=== PATIENT | male | born 1980 | race Caucasian/White ===

== ENCOUNTER 2020-04-28 14:08 | Inpatient (IN) | payer OTHER ==
[~2020-04-28] VITALS: Ht 165.1 cm; Wt 68.0 kg
[~2020-04-28 14:08] MED LIST: CLONAZEPAM2 MG PO; OMEGA 3 FISH O1 EAC1 PO; PROBIOTIC1 EAC2 PO; VITAMIN K PO; [UNRECOGNIZED DRUG - OTHER] ORAL; [UNRECOGNIZED DRUG - OTHER] PO; [UNRECOGNIZED DRUG - OTHER] PO; [UNRECOGNIZED DRUG - OTHER] PO; [UNRECOGNIZED DRUG - REMARK] PO
--- NOTE | 2020-04-28 14:51 | Emergency Room Report ---
History of Present Illness General Chief Complaint: General Complaint Source: Patient, PMD - Dr. Wood Present Illness HPI Patient is a 39-year-old male who presents to the ER complaining of abdominal pain and bloating. Patient had a Jamison pouch placed by Dr. Wood in the [facility]. Patient came in from [place] to see his surgeon for further treatment and evaluation. He denies any fever or chills. Denies any chest pain or shortness of breath. He states that he wakes up in the morning with severe abdominal bloating. Dr. Wood who is in the emergency department is requesting basic labs, COVID-19 test and hydration. He does not want any imaging done at this time. Patient is declining any pain medication at this time. Allergies: Coded Allergies: No Known Allergies (Unverified , 01/28/13) COVID-19 Screening Contact w/high risk pt: No Experienced COVID-19 symptoms?: No COVID-19 Testing performed MICA MINER: No Patient History Reviewed Nursing Documentation: PMH: Agreed; PSxH: Agreed Nursing Documentation-PMH Past Medical History: No History, Except For Hx Cardiac Problems: No - IBS Hx Gastrointestinal Problems: Yes - pelvic floor dysfunction, colonic inertia Review of Systems All Other Systems: negative except mentioned in HPI Physical Exam Vital Signs Date Time Temp Pulse Resp B/P (MAP) Pulse Ox O2 Delivery O2 Flow Rate FiO2 04/28/20 14:14 98.1 93 18 138/98 (111) 95 Room Air Sp02 EP Interpretation: reviewed, normal General Appearance: no apparent distress, alert, GCS 15, non-toxic Head: normocephalic, atraumatic Eyes: bilateral eye normal inspection, bilateral eye PERRL ENT: hearing grossly normal, normal pharynx, no angioedema, normal voice Neck: full range of motion, supple/symm/no masses Respiratory: chest non-tender, lungs clear, normal breath sounds, speaking full sentences Cardiovascular #1: regular rate, rhythm, no edema Gastrointestinal: soft, no guarding, no rebound, other - Palpable pouch in the lower abdomen Rectal: deferred Musculoskeletal: normal range of motion Neurologic: sequins stringer III-XII nml as tested, oriented x3 Psychiatric: no suicidal/homicidal ideation Skin: no rash Lymphatic: no adenopathy Medical Decision Making Diagnostic Impression: Primary Impression: Abdominal distension Additional Impression: Abdominal pain ER Course Patient's labs demonstrate no significant acute abnormalities. Patient's complaining of some abdominal discomfort. I ordered for Mylanta and Pepcid. Patient given IV fluids. Patient will be admitted for further treatment and evaluation. Laboratory Tests Test 04/28/20 14:54 White Blood Count 5.9 K/UL (4.8-10.8) Red Blood Count 5.84 M/UL (4.70-6.10) Hemoglobin 17.2 G/DL (14.2-18.0) Hematocrit 50.0 % (42.0-52.0) Mean Corpuscular Volume 86 FL (80-99) Mean Corpuscular Hemoglobin 29.5 PG (27.0-31.0) Mean Corpuscular Hemoglobin Concent 34.4 G/DL (32.0-36.0) Red Cell Distribution Width 12.5 % (11.6-14.8) Platelet Count 257 K/UL (150-450) Mean Platelet Volume 7.9 FL (6.5-10.1) Neutrophils (%) (Auto) 62.5 % (45.0-75.0) Lymphocytes (%) (Auto) 26.4 % (20.0-45.0) Monocytes (%) (Auto) 6.2 % (1.0-10.0) Eosinophils (%) (Auto) 3.3 % (0.0-3.0) H Basophils (%) (Auto) 1.6 % (0.0-2.0) Sodium Level 140 MMOL/L (136-145) Potassium Level 3.9 MMOL/L (3.5-5.1) Chloride Level 103 MMOL/L (98-107) Carbon Dioxide Level 27 MMOL/L (21-32) Anion Gap 10 mmol/L (5-15) Blood Urea Nitrogen 8 mg/dL (7-18) Creatinine 1.0 MG/DL (0.55-1.30) Estimated Glomerular Filtration Rate > 60 mL/min (>60) Glucose Level 87 MG/DL (74-106) Calcium Level 8.8 MG/DL (8.5-10.1) Total Bilirubin 1.2 MG/DL (0.2-1.0) H Direct Bilirubin 0.2 MG/DL (0.0-0.3) Aspartate Amino Transferase (AST) 20 U/L (15-37) Alanine Aminotransferase (ALT) 11 U/L (12-78) L Alkaline Phosphatase 70 U/L (46-116) Total Protein 7.3 G/DL (6.4-8.2) Albumin 3.9 G/DL (3.4-5.0) Globulin 3.4 g/dL Albumin/Globulin Ratio 1.1 (1.0-2.7) Lipase 143 U/L (73-393) Microbiology Date/Time Source Procedure Growth Status 04/28/20 14:54 Nasopharynx SARS-CoV-2 Antigen (Rapid)([facility]) - Final Complete Last Vital Signs Date Time Temp Pulse Resp B/P (MAP) Pulse Ox O2 Delivery O2 Flow Rate FiO2 04/28/20 14:14 98.1 93 18 138/98 (111) 95 Room Air Disposition: ADMITTED INPATIENT - MS Condition: Stable Physician Consult: Dr. Nina MD Referrals: NOT CHOSEN IPA/,REFERRING (PCP) Additional Instructions: Please note that this report is being documented using [employer] technology. This can lead to erroneous entry secondary to incorrect interpretation by the dictating instrument. Katy Yan M.D. Apr 28, 2020 14:51
[2020-04-28 15:07] LABS: BASOPHILS % (AUTO) 1.6 % (0.0-2.0); EOSINOPHILS % (AUTO) 3.3 % (0.0-3.0); HEMOGLOBIN 17.2 G/DL (14.2-18.0); LYMPHOCYTES % (AUTO) 26.4 % (20.0-45.0); MEAN CORPUSCULAR VOLUME 86 FL (80-99); MONOCYTES % (AUTO) 6.2 % (1.0-10.0); NEUTROPHILS % (AUTO) 62.5 % (45.0-75.0); PLATELET COUNT 257 K/UL (150-450); RED BLOOD COUNT 5.84 M/UL (4.70-6.10); RED CELL DISTRIBUTION WIDTH 12.5 % (11.6-14.8); WHITE BLOOD COUNT 5.9 K/UL (4.8-10.8)
[2020-04-28 15:18] LABS: ANION GAP 10 mmol/L (5-15); BLOOD UREA NITROGEN 8 mg/dL (7-18); CALCIUM 8.8 MG/DL (8.5-10.1); CARBON DIOXIDE 27 MMOL/L (21-32); CHLORIDE 103 MMOL/L (98-107); POTASSIUM 3.9 MMOL/L (3.5-5.1); SODIUM 140 MMOL/L (136-145)
--- NOTE | 2020-04-28 15:28 | NUR ---
Patient presented to the ER with c/o abdominal pain and bloating. Patient had a Jamison pouch placed by Dr. Wood in the past. Patient came in from [place] to see his surgeon for further treatment and evaluation. He states that it has been awhile with the bloating feeling but 24 hrs with severe abdominal bloating.he wakes up in the morning with severe abdominal bloating. Dr. Wood who is in the emergency department is requesting basic labs, COVID-19 test and hydration. He does not want any imaging done at this time. Patient denies pain at present.
[2020-04-28 15:30] LABS: ALANINE AMINOTRANSFERASE 11 U/L (12-78); ALBUMIN 3.9 G/DL (3.4-5.0); ALBUMIN/GLOBULIN RATIO 1.1 (1.0-2.7); ALKALINE PHOSPHATASE 70 U/L (46-116); ASPARTATE AMINO TRANSFERASE 20 U/L (15-37); BILIRUBIN,TOTAL 1.2 MG/DL (0.2-1.0)
[2020-04-28 15:36] LABS: BILIRUBIN,DIRECT 0.2 MG/DL (0.0-0.3)
--- NOTE | 2020-04-28 16:45 | NUR ---
trace rn called report to 4th floor rn. pt belongings list filled out with rn and pt. pt taken upstairs to room.
[2020-04-28 16:50] VITALS: BP 134/76
--- NOTE | 2020-04-28 16:50 | NUR ---
NURSE NOTES: Received pt from ER and report from DELMY Parkinson. Pt was transferred to floor via W/C, alert and oriented x4, ambulatory. Checked all belongings with pt. Vitals stable. Pt on RA with no respiratory distress. Pt c/o little bloating pain 2/10 but tolerating well. Skin intact. Noted with RLQ stoma, inserted 28 Wilson connected to continuous gravity drainage and covered with dry dressing. noted little amount light brown liquid output. IV site intact and patent. Provided needs and supplies. Bed in low and locked. Oriented pt to room. Educated pt to use call light for assistance. Pt verbalized understanding. Call light and needs within reach. Will continue to monitor.
[2020-04-28] MEDS: D5 1/2NS w/KCl 20mEq 1,000 ML IV SCH (18:00)
--- NOTE | 2020-04-28 19:31 | NUR ---
NURSE HAND-OFF: Important Events on Shift:[Admission, inserted 28 larry to continuous gravity drainage, true output 80.] Patient Status: [] Diet: [clear liquid] Pending Orders: [] Pending Results/Labs:[] Pending MD notification:[] Latest Vital Signs: Temperature 98.0 , Pulse 93 , B/P 138 /98 , Respiratory Rate 18 , O2 SAT 95 , Room Air, O2 Flow Rate . Vital Sign Comment: [stable] Latest Martins Fall Score: 35 Fall Risk: Medium Risk Safety Measures: Call light Within Reach, Bed Alarm Zone 1, Side Rails Side Rails x2, Bed position Low and Locked. Fall Precautions: Report given to [DELMY Fortune].
[2020-04-28 20:00] VITALS: BP 131/92
[2020-04-28] MEDS ORDERED: Zolpidem 5mg tab ORAL PRN (20:00)
--- NOTE | 2020-04-28 20:40 | NUR ---
NURSE NOTES: Patient is awake, alert and verbally responsive. Kept clean and comfortable. Provided safe environment. Bed in low and locked position. All belongings at bedside. Iv site noted, iv fluid is infusing as ordered. No complaint of pain or discomfort at the moment. Flushed Ileo as ordered. Educated patient regarding medication regiment and vital signs timing. Respiration is even and unlabored. Ambulatory. Patient is informed that he will be NPO at midnight. Will continue plan of care. Call light is at bedside.
[2020-04-28 23:04] LABS: APPEARANCE,URINE CLEAR; BILIRUBIN, URINE NEGATIVE (NEGATIVE); GLUCOSE, URINE (UA) NEGATIVE (NEGATIVE); KETONES,URINE 1+ (NEGATIVE); LEUKOCYTE ESTERASE ,URINE 1+ (NEGATIVE); NITRITE,URINE NEGATIVE (NEGATIVE); PH,URINE 5 (4.5-8.0); PROTEIN,URINE NEGATIVE (NEGATIVE); UROBILINOGEN,URINE NORMAL MG/DL (0.0-1.0)
[2020-04-28] MEDS: LORazepam 1mg tab ORAL PRN (23:12)
[2020-04-28 23:27] LABS: COLOR,URINE YELLOW
[2020-04-29] VITALS: BP 118/68
[2020-04-29 04:00] VITALS: BP 120/67
[2020-04-29] MEDS: D5 1/2NS w/KCl 20mEq 1,000 ML IV SCH ×2 (06:46→17:15)
[2020-04-29 07:07] LABS: ANION GAP 6 mmol/L (5-15); BLOOD UREA NITROGEN 8 mg/dL (7-18); CALCIUM 8.3 MG/DL (8.5-10.1); CARBON DIOXIDE 27 MMOL/L (21-32); CHLORIDE 104 MMOL/L (98-107); POTASSIUM 3.8 MMOL/L (3.5-5.1); SODIUM 137 MMOL/L (136-145)
[2020-04-29 07:15] LABS: BASOPHILS % (AUTO) 1.2 % (0.0-2.0); EOSINOPHILS % (AUTO) 2.8 % (0.0-3.0); HEMATOCRIT 50.8 % (42.0-52.0); LYMPHOCYTES % (AUTO) 20.2 % (20.0-45.0); MEAN CORPUSCULAR VOLUME 85 FL (80-99); MONOCYTES % (AUTO) 6.4 % (1.0-10.0); NEUTROPHILS % (AUTO) 69.3 % (45.0-75.0); PLATELET COUNT 254 K/UL (150-450); RED BLOOD COUNT 5.95 M/UL (4.70-6.10); RED CELL DISTRIBUTION WIDTH 11.4 % (11.6-14.8)
--- NOTE | 2020-04-29 07:17 | NUR ---
NURSE HAND-OFF: Important Events on Shift:Less abdominal pain Patient Status: Diet: Pending Orders: Pending Results/Labs: Pending MD notification: Latest Vital Signs: Temperature 98.0 , Pulse 73 , B/P 120 /67 , Respiratory Rate 18 , O2 SAT 96 , Room Air, O2 Flow Rate . Vital Sign Comment: Latest Martins Fall Score: 35 Fall Risk: Medium Risk Safety Measures: Call light Within Reach, Bed Alarm Zone 2, Side Rails Side Rails x2, Bed position Low and Locked. Fall Precautions: Report given to .
[2020-04-29 07:24] LABS: ALANINE AMINOTRANSFERASE 19 U/L (12-78); ALBUMIN 3.5 G/DL (3.4-5.0); ALBUMIN/GLOBULIN RATIO 1.3 (1.0-2.7); ALKALINE PHOSPHATASE 62 U/L (46-116); ASPARTATE AMINO TRANSFERASE 18 U/L (15-37); BILIRUBIN,TOTAL 1.2 MG/DL (0.2-1.0); FERRITIN 27 NG/ML (8-388)
[2020-04-29 07:25] LABS: BILIRUBIN,DIRECT 0.3 MG/DL (0.0-0.3)
[2020-04-29 07:31] LABS: % IRON SATURATION 79 % (15-50); IRON 275 ug/dL (50-175); TOTAL IRON BINDING CAPACITY 348 ug/dL (250-450)
--- NOTE | 2020-04-29 07:45 | NUR ---
NURSE NOTES: Received report from DELMY Fortune. Patient is awake, alert and verbally responsive. Respiration is even and unlabored. Ambulatory. No acute distress noted. No c/o pain at this time. Iv site noted, iv fluid is infusing as ordered. Ileo cath patent draining to gravity. Bed in low and locked position. Pt on NPO. Call light within reach. Will continue to monitor.
--- NOTE | 2020-04-29 07:45 | Pre-Procedure Note/Attestation ---
Pre-Procedure Note/Attestation Complete Prior to Procedure Planned Procedure: not applicable Procedure Narrative: Jamison Continent Ileostomy pouch endoscopy Indications for Procedure Pre-Operative Diagnosis: Abdominal pain and malfunctioning Jamison continent ileostomy Attestation I attest that I discussed the nature of the procedure; its benefits; risks and complications; and alternatives (and the risks and benefits of such alternatives), prior to the procedure, with the patient (or the patient's legal software support representative). I attest that, if there was a reasonable possibility of needing a blood transfusion, the patient (or the patient's legal software support representative) was given the [facility] standardized written summary, pursuant to the [place] Blood Safety Act ([place] Health and Safety Code # 1645, as amended). I attest that I re-evaluated the patient just prior to the surgery and that there has been no change in the patient's H&P, except as documented below: none Pedro Wood MD Apr 29, 2020 07:45
--- NOTE | 2020-04-29 07:49 | General Progress Note ---
Progress Note Progress Note H&P dictated. 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 He is stable at this time. Pedro Wood MD Apr 29, 2020 07:49
--- NOTE | 2020-04-29 07:50 | NUR ---
NURSE NOTES: Pt off unit for Endoscopy.
[2020-04-29 08:00] VITALS: BP 117/79
--- NOTE | 2020-04-29 08:24 | Brief Operative Note ---
Immediate Post Operative Note Operative Note Pre-op Diagnosis: Abdominal pain and malfunctioning Jamison continent ileostomy Procedure: Jamison continent ileostomy pouch endoscopy Post-op Diagnosis: same with normal pouch and valve, elongated access segment Post-op Diagnosis: same as pre-op Findings: consistent w/pre-op dx studies Surgeon: preston Anesthesia: other - none Specimen: none Complications: none Condition: stable Fluids: none Estimated Blood Loss: none Drains: other - 28 Wilson to Jamison pouch Implant(s) used?: No Pedro Wood MD Apr 29, 2020 08:24
--- NOTE | 2020-04-29 08:34 | NUR ---
NURSE NOTES: Pt came back from GI lab with stable condition.
--- NOTE | 2020-04-29 09:00 | NUR ---
NURSE NOTES: Stool collected from drainage bag for C diff and stool culture per Dr. Wood and sent to lab
--- NOTE | 2020-04-29 09:29 | Procedure Note ---
DATE OF PROCEDURE: 04/29/2020 Endoscopy Procedure ENDOSCOPIST: Pedro Wood M.D. ANESTHESIA: None. SEDATION: None. PRE-ENDOSCOPY DIAGNOSES: 1. Malfunctioning Jamison continent ileostomy with chronic persistent abdominal pain and possible pouchitis. 2. History of colonic inertia and pelvic floor dysfunction. 3. Status post total abdominal colectomy and creation of Jamison continent ileostomy. POST-ENDOSCOPY DIAGNOSES: 1. Malfunctioning Jamison continent ileostomy with chronic persistent abdominal pain and possible pouchitis. 2. History of colonic inertia and pelvic floor dysfunction. 3. Status post total abdominal colectomy and creation of Jamison continent ileostomy. ENDOSCOPY PERFORMED: Jamison continent ileostomy pouch endoscopy. FINDINGS: Elongation of the access segment with the distance from the stoma opening to the tip of the nipple valve measured at 12 cm. The stoma is very small and the patient requires an indwelling stent continuously. The pouch appeared completely normal without any inflammation or ulcerations and the nipple valve was circumferentially well-formed. DESCRIPTION OF PROCEDURE: The patient was positioned supine in the GI lab without any need for anesthesia or sedation. The indwelling pouch catheter was removed after irrigating with saline. Using a GIF-P140 endoscope, the stoma was entered. The access segment is elongated with the distance to the tip of the valve approximately 12 cm. The tract is straight and the patient reports no difficulty with intubation and no incontinence of stool or gas through the stoma. The pouch is distensible. There are no ulcerations or inflammation. The afferent bowel is patent, but due to patient's discomfort the scope could not enter very far 5 or 6 cm. Retroflexed views revealed a wide-open collar orifice and a circumferentially well-formed nipple valve. Withdrawal views confirmed the above findings. After removing the endoscope, I was able to insert a 28-Kazakh Wilson catheter into the pouch to evacuate the retained gas and liquid. It was secured to the skin with tape with a dressing over the stoma and connected to a continuous gravity drainage bag. The patient tolerated the endoscopy well and will continue with his diagnostic workup. Pedro Wood M.D. DR: MARY CARMEN JOB#: [id number] CC: ALLISON
--- NOTE | 2020-04-29 09:29 | History and Physical Report ---
DATE OF ADMISSION: 04/28/2020 Admitted from the emergency room in the early evening of April 28, 2020. HISTORY OF PRESENT ILLNESS: The patient is a 39-year-old male in overall good health, who has progressive and persistent abdominal pain and a 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 The patient has a past history of colonic inertia and pelvic floor dysfunction. In 2009, he underwent sigmoid colectomy and in 2012, he underwent total abdominal colectomy with creation of a Jamison continent ileostomy pouch. He underwent revision of his stoma in depth in May 2013 because of some difficulty with intubation. In recent years, he has had difficulty with chronic pouchitis type symptoms with cramping abdominal pain and loose output. He states he has no difficulty with intubation and no incontinence of stool or gas through the stoma. His stoma is very small and he must wear a stent continuously or the stoma closes down and would not allow him to insert his 30-Uzbek silicone intubation catheter to evacuate stool from his pouch. His abdominal pain symptoms have not responded to a variety of medications for pouchitis including Cipro, Flagyl, Augmentin, Diflucan, and probiotics. The patient was admitted because of his constant abdominal pain. PAST MEDICAL HISTORY/MEDICATIONS: Testosterone replacement therapy and the above various medications for abdominal pain, cramping, pouchitis. ALLERGIES: None. OPERATIONS: Only the above. PHYSICAL EXAMINATION: GENERAL: The patient is 5 feet 9 inches, 150 pounds. He is well developed and well nourished with stable vital signs. HEENT: Within normal limits. LUNGS: Clear. HEART: Regular rhythm. BREASTS: Without masses. ABDOMEN: Soft and flat. There is a long midline scar. There is a small stoma low in the right lower quadrant of the Jamison pouch. There is no evidence of abdominal wall incisional or peristomal hernia. GENITALIA: Within normal limits. RECTAL: There is a small rectal pouch. EXTREMITIES: Without edema. NEUROLOGIC: Physiologic. IMPRESSION: 1. Continuing and progressive abdominal pain of uncertain etiology, rule out a stricture or partial obstruction. 2. Malfunctioning Jamison continent ileostomy with recurring, cramping and diarrhea output, refractory to medications. 3. History of colonic inertia and pelvic floor dysfunction. 4. STATUS POST MULTIPLE ABDOMINAL OPERATIONS: 4.1. Sigmoid colectomy 2009 without any clinical benefit. 4.2. Total abdominal colectomy with creation of a Jamison continent ileostomy January 29, 2013 (a postoperative pelvic abscess required CT-guided drainage). 4.3. Revision of Jamison continent ileostomy stoma in depth on May 07, 2013 PLAN: The patient will be admitted and will be given only clear liquids as tolerated, but will be primarily NPO for a thorough evaluation. He will need to undergo Jamison continent ileostomy pouch endoscopy, which will not require any anesthesia. He will require a pouchogram with retrograde small bowel series, CT scan of abdomen and pelvis with oral and IV contrast and upper GI with small bowel series, all will be done in the appropriate sequence. An indwelling 28-Uzbek Wilson catheter was placed into his Jamison continent ileostomy pouch and connected to continuous gravity drainage. Stool samples will be sent for C. difficile toxin and culture and sensitivity. Pedro Wood M.D. DR: LIVIA JOB#: [id number] CC: ALLISON
[2020-04-29 12:00] VITALS: BP 108/72
--- NOTE | 2020-04-29 13:10 | NUR ---
NURSE NOTES: Pt off unit for Pouchogram
--- NOTE | 2020-04-29 13:48 | NUR ---
NURSE NOTES: Pt came back from Radiology.
--- NOTE | 2020-04-29 14:09 | Diagnostic Imaging Report ---
Indication: Abdominal pain. History of total colectomy and creation of continent ostomy Technique: Kock Pouch Pouchogram w/SBS. Fluoroscopic and radiographic examination performed. Primary Teacher radiograph obtained. Subsequently water-soluble contrast was instilled via the continent ostomy catheter. Radiographic and fluoroscopic images were obtained. Total fluoroscopy time 42.1 seconds. Total fluoroscopy dose 9.88 mGy. Total number of radiographic images/fluoroscopic runs obtained: 12. Comparison: None Findings: Primary Teacher radiograph demonstrates surgical material in the pelvis consistent with known history of continent ostomy creation. Water-soluble contrast was instilled and subsequent fluoroscopic images were obtained. There is normal filling of the pouch. The pouch does not appear very capacious, refluxing quickly into the upstream small bowel loops. The visualized loops of small bowel are normal in caliber. There is no evidence to suggest small bowel obstruction. No discrete mucosal irregularities appreciated in the pouch however more sensitive evaluation could be made with endoscopy. No acute osseous abnormality seen. IMPRESSION: Postsurgical changes related to continent ostomy. No evidence of small bowel obstruction. Small bowel loops grossly unremarkable appearance to the extent visualized.
[2020-04-29 16:00] VITALS: BP 123/75
--- NOTE | 2020-04-29 19:37 | NUR ---
NURSE HAND-OFF: Important Events on Shift:[Endoscopy, pouchogram done, resume clear liquid diet] Patient Status: [] Diet: [clear liquid] Pending Orders: [] Pending Results/Labs:[] Pending MD notification:[] Latest Vital Signs: Temperature 97.8 , Pulse 88 , B/P 123 /75 , Respiratory Rate 18 , O2 SAT 95 , Room Air, O2 Flow Rate . Vital Sign Comment: [stable] Latest Martins Fall Score: 35 Fall Risk: Medium Risk Safety Measures: Call light Within Reach, Bed Alarm Zone 2, Side Rails Side Rails x2, Bed position Low and Locked. Fall Precautions: Report given to [Fabian Beard].
--- NOTE | 2020-04-29 19:45 | NUR ---
NURSE NOTES: Received report from Sima BROCK. Patient is awake, alert and oriented x4. On room air, breathing is even and unlabored. No complains of pain or distress noted. Ileo RLQ intact and draining well. Will flush 20cc q3h and prn. IV left FA intact and patent with no bleeding noted. IVF running as ordered. Bed low and locked. Call light within reach.
[2020-04-29 20:00] VITALS: BP 117/67
--- NOTE | 2020-04-29 22:00 | NUR ---
NURSE NOTES: Patient requests to be off IVF when sleeping. He stated "I have ileo catheter already, another line on my body makes me hard to fall asleep." Explained the risks and benefits of IVF, and patient stated he understands. Patient is on clear liquid diet and drinking water. Encouraged him to drink fluid since he will be off IVF while sleeping. Will disconnect IVF from 2200 to 0600 per patient request.
[2020-04-29] MEDS: LORazepam 1mg tab ORAL PRN (22:07)
[2020-04-30] VITALS: BP 119/76
[2020-04-30] MEDS: D5 1/2NS w/KCl 20mEq 1,000 ML IV SCH ×3 (03:27→22:29)
--- NOTE | 2020-04-30 07:04 | Consultation ---
History of Present Illness General Chief Complaint: General Complaint Present Illness Allergies: Coded Allergies: No Known Allergies (Unverified , 01/28/13) Medication History Scheduled Clonazepam (Clonazepam), 2 MG PO QHS, (Reported) Lactobacillus Acidophilus (Probiotic), 1 EACH PO BID, (Reported) Multivitamins With Minerals Liq Ud* (Multivitamins With Minerals Liq Ud*), 10 ML ORAL DAILY, (Reported) Patient History Healthcare decision maker N Resuscitation status Advanced Directive on File Physical Exam Last 24 Hour Vital Signs Date Time Temp Pulse Resp B/P (MAP) Pulse Ox O2 Delivery O2 Flow Rate FiO2 04/30/20 00:00 97.2 75 18 119/76 (90) 97 04/29/20 22:52 75 18 117/67 96 04/29/20 22:07 75 18 117/67 96 04/29/20 21:00 Room Air 04/29/20 20:00 97.6 75 18 117/67 (84) 96 04/29/20 16:00 97.8 88 18 123/75 (91) 95 04/29/20 12:00 98.2 74 18 108/72 (84) 96 04/29/20 09:00 Room Air 04/29/20 08:00 98.0 87 18 117/79 (92) 96 Intake and Output 04/29/20 04/30/20 19:00 07:00 Intake Total 480 ml 700 ml Output Total 1210 ml 925 ml Balance -730 ml -225 ml Intake Oral 480 ml 400 ml IV Total 300 ml Output Urine Total 200 ml 475 ml Other 1010 ml 450 ml # Voids 2 Microbiology Date/Time Source Procedure Growth Status 04/29/20 09:05 Stool Clostridium difficile Toxin Assay - Final Complete 04/29/20 09:05 Stool Stool Culture - Preliminary NORMAL FECAL SOM. Resulted Height (Feet): 5 Height (Inches): 5.00 Weight (Pounds): 150 Medications Current Medications Medications (Trade) Dose Ordered Sig/Charissa Route PRN Reason Start Time Stop Time Status Last Admin Dose Admin Dextrose/ Electrolytes 1,000 ml @ 100 mls/hr Q10H IV 04/28/20 18:00 05/28/20 17:59 04/29/20 17:15 Lorazepam (Ativan) 1 mg QHS PRN ORAL INSOMNIA 04/28/20 21:45 05/05/20 21:44 04/29/20 22:07 Ondansetron HCl (Zofran) 4 mg Q4H PRN IVP Nausea & Vomiting 04/28/20 17:00 05/28/20 16:59 Assessment/Plan Assessment/Plan: Hematology Consultation REQ : Pedro Wood RFC: Erythrocytosis DOS: 04/30/2020 Id The patient is a 39-year-old male in overall good health, who has progressive and persistent abdominal pain and a 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 The patient has a past history of colonic inertia and pelvic floor dysfunction. In 2009, he underwent sigmoid colectomy and in 2012, he underwent total abdominal colectomy with creation of a Jamison continent ileostomy pouch. He underwent revision of his stoma in depth in May 2013 because of some difficulty with intubation. In recent years, he has had difficulty with chronic pouchitis type symptoms with cramping abdominal pain and loose output. He states he has no difficulty with intubation and no incontinence of stool or gas through the stoma. His stoma is very small and he must wear a stent continuously or the stoma closes down and would not allow him to insert his 30-[place] silicone intubation catheter to evacuate stool from his pouch. His abdominal pain symptoms have now responded to a variety of medications for pouchitis including Cipro, Flagyl, Augmentin, Diflucan, probiotics. The patient was admitted because of his constant abdominal pain. Pending Ct scan I dw him re his hgb/hct, has been persistently elevated over last two years, has been on testosterone treatment, hgb remains elevated despite blood donation, and he has been on persistent testosterone, ferritin recently was 23, as outpatient, he has been on hormone replacement, per patient has the hormones per instructor of nursing of a 86 year old male. PAST MEDICAL HISTORY/MEDICATIONS: Testosterone replacement therapy and the above various medications for abdominal pain, cramping, pouchitis. ALLERGIES: None. OPERATIONS: Only the above. PHYSICAL EXAMINATION: GENERAL: The patient is 5 feet 9 inches, vitals stable HEENT: Within normal limits. LUNGS: Clear. HEART: Regular rhythm. BREASTS: Without masses. ABDOMEN: Soft and flat. There is a long midline scar. There is a small stoma low in the right lower quadrant of the Jamison pouch++++ GENITALIA: Within normal limits. RECTAL: There is a small rectal pouch. EXTREMITIES: Without edema. NEUROLOGIC: Physiologic. Labs: reviewed Imaging: noted IMPRESSION/RECS: # Erythrocytosis with hct that is consistently above 50, currently is 52, is due to persistent testosterone replacement --> labs have been reviewed, ferritin 27, tibc 348, is consistent with blood donation --> would recommend to see instructor of nursing to adjust dose as needed of testosterone --> at this time continue to be off iron, does not need iron replacement --> recommend to continue to donate blood in [place] as needed to get ferritin <50 --> dw him extensively, he will do well with continued donations # Continuing and progressive abdominal pain of uncertain etiology, rule out a stricture or partial obstruction. --> imaging with Ct, bowel series --> per surg # Malfunctioning Jamison continent ileostomy with recurring, cramping and diarrhea output, refractory to medications. # History of colonic inertia and pelvic floor dysfunction. # STATUS POST MULTIPLE ABDOMINAL OPERATIONS: -->. Sigmoid colectomy 2009 without any clinical benefit. -->. Total abdominal colectomy with creation of a Jamison continent ileostomy January 29, 2013 (a postoperative pelvic abscess required CT-guided drainage). -->. Revision of Jamison continent ileostomy stoma in depth on May 07, 2013. # Dvt ppx scds Appreciate consultation and Selwyn Nair Rn, MD Apr 30, 2020 07:04
--- NOTE | 2020-04-30 07:13 | NUR ---
NURSE HAND-OFF: Important Events on Shift: No new event Patient Status: Stable Diet: Clear liquid Pending Orders: [] Pending Results/Labs:[] Pending MD notification:[] Latest Vital Signs: Temperature 97.2 , Pulse 75 , B/P 119 /76 , Respiratory Rate 18 , O2 SAT 97 , Room Air, O2 Flow Rate . Vital Sign Comment: VS stable Latest Martins Fall Score: 20 Fall Risk: Low Risk Safety Measures: Call light Within Reach, Bed Alarm Zone 2, Side Rails Side Rails x2, Bed position Low and Locked. Fall Precautions: Report given to Livia BROCK.
[2020-04-30 08:00] VITALS: BP 112/76
--- NOTE | 2020-04-30 08:00 | NUR ---
NURSE NOTES: Patient awake and alert and oriented.IV fluids infusing as ordered.patient has illeostomy catheter connected to drainage bag with green/ brown liquid drainage noted.Patient is NPO fo schedule CT of abdomen this AM.Call light within reach.
--- NOTE | 2020-04-30 08:08 | General Progress Note ---
Progress Note Progress Note Continued intermittent cramping pains. Pouchogram with retrograde Small bowel series negative except for small capacity Jamison continent ileostomy pouch Abdomen soft. Jamison pouch catheter in place to continuous drainage BCIR ileo 1460 Appreciate hematology consultation Imp: Abdominal pain; continent ileostomy Plan; CT scan abd+pelvis with oral and IV contrast Maintain indwelling BCIR pouch catheter to continuous drainage Pedro Wood MD Apr 30, 2020 08:08
[2020-04-30] MEDS ORDERED: Omnipaque-300 100ml vial INJ PRN (08:15)
--- NOTE | 2020-04-30 11:08 | NUR ---
INSURANCE CLINICALS FAXED TO [facility] FX [phone]
[2020-04-30 12:00] VITALS: BP 122/87
--- NOTE | 2020-04-30 12:31 | Diagnostic Imaging Report ---
EXAM: CT CT Abdomen Pelvis w/Contrast INDICATION: Reason For Exam: ABD PAIN. COMPARISON: 05/07/2013 TECHNIQUE: Axial images were obtained through the abdomen pelvis with intravenous contrast. Sagittal and coronal reformats are generated. All CT scans at this facility are performed using dose modulation techniques as appropriate to a performed exam including the following: automated exposure control with adjustment of the mA and/or kV according to patient size. RADIATION DOSE: CTDIvol: 3.8 mGy DLP: 207.3 mGy-cm Dose information generated by the CT scanner is available in PACS. FINDINGS: The lung bases are clear. The liver and spleen are homogeneous. Gallbladder is contracted. The pancreas is unremarkable. Adrenals are normal in morphology. There is a tiny cyst lower pole right kidney. No hydronephrosis seen bilaterally. Mildly prominent proximal small bowel loops above the surgical anastomosis in the left mid abdomen. There is an ileostomy noted in the right lower quadrant. There is a drain identified in the ileostomy continent pouch which is nondilated. Colon is absent. The appendix is not visualized. There is no free fluid or free air. No pathologic adenopathy demonstrated. Urinary bladder appears unremarkable. There is no suspicious superficial soft tissue or osseous abnormality. IMPRESSION: ADMINISTRATION OF RIGHT LOWER QUADRANT ILEOSTOMY WITH AN ILEOSTOMY CONTINENT POUCH WITH DRAIN IN PLACE. A FEW MILDLY PROMINENT PROXIMAL SMALL BOWEL LOOPS ABOVE THE SURGICAL ANASTOMOSIS. NO SIGNIFICANT OBSTRUCTION NOTED. OTHERWISE NO SIGNS OF ACUTE DISEASE.
[2020-04-30 16:00] VITALS: BP 126/77
[2020-04-30] MEDS ORDERED: Vitamin B12 1000mcg/ml Inj IM SCH (16:15)
[2020-04-30] MEDS ORDERED: TESTOSTERO100 MG/1 M IM (17:42)
--- NOTE | 2020-04-30 18:00 | NUR ---
NURSE NOTES: Patient resting,no complaints of pain.Will be NPO after midnight. Patient ambulated through the day.Call light within reach.
--- NOTE | 2020-04-30 19:20 | NUR ---
NURSE HAND-OFF: Zahra BROCK Important Events on Shift:[ flush illeostomy as ordered. Patient Status: [stable.] Diet: [NPO after Midnight] Pending Orders: [] Pending Results/Labs:[] Pending MD notification:[] Latest Vital Signs: Temperature 97.5 , Pulse 92 , B/P 126 /77 , Respiratory Rate 18 , O2 SAT 98 , Room Air, O2 Flow Rate . Vital Sign Comment: [] Latest Martins Fall Score: 20 Fall Risk: Low Risk Safety Measures: Call light Within Reach, Bed Alarm Zone 2, Side Rails Side Rails x2, Bed position Low and Locked. Fall Precautions: Report given to [].
[2020-04-30 20:00] VITALS: BP 112/88
--- NOTE | 2020-04-30 20:01 | NUR ---
Received patient in bed, awake, alert, oriented x4, ambulatory with steady gate, able to make his needs known. IV site is clean dry and intact, patient has an ileostomy pouch attached to a drainage bag, clean dry and intact. Call light is within reach, bed is lowered, locked, alarm is on, will continue to monitor for comfort and safety.
--- NOTE | 2020-04-30 20:38 | NUR ---
Per patient and knowledge of Dr Wood patient is not to be bothered from 2200 till 0600, no VS and no flushes. CN was made aware.
[2020-04-30] MEDS: LORazepam 1mg tab ORAL PRN (21:36)
--- NOTE | 2020-05-01 07:15 | NUR ---
NURSE NOTES: Report received from Nohemy BROCK, rounds made. Patient AOx4, calm, resting in semi-fowlers position in bed. Respirations even/unlabored on RA. NPO for upper GI today. IVF D5 1/2 NS at 100 ml/hr to LFA, site asymptomatic. RLQ ileostomy, to drainage bag, light brown output. Denies pain, SOB, NV. Call light in reach, bed in lowest position, will continue to monitor.
--- NOTE | 2020-05-01 07:20 | NUR ---
NURSE HAND-OFF: Important Events on Shift: patient refused IV fluids from midnight till 0600. Patient refused labs in am, but asked labor contract analyst to come back later and add Vitamin D to the draw. Patient refused midnight flush of ileostomy. GI procedure is pending. Patient Status: full Diet: NPO Pending Orders: Pending Results/Labs: Pending MD notification: Latest Vital Signs: Temperature 96.8 , Pulse 86 , B/P 112 /88 , Respiratory Rate 16 , O2 SAT 98 , Room Air, O2 Flow Rate . Vital Sign Comment: Latest Martins Fall Score: 20 Fall Risk: Low Risk Safety Measures: Call light Within Reach, Bed Alarm Zone 2, Side Rails Side Rails x2, Bed position Low and Locked. Fall Precautions: Report given to Megha BROCK
--- NOTE | 2020-05-01 08:06 | General Progress Note ---
Progress Note Progress Note AVSS. Large volume ileo output after CT scan with contrast. To have Upper GI with small bowel series today To have consultation with Dr. Vila today Pedro Wood MD May 01, 2020 08:06
--- NOTE | 2020-05-01 09:05 | Hematology/Onc Progress Note ---
Assessment/Plan Assessment/Plan IMPRESSION/RECS: # Erythrocytosis with hct that is consistently above 50, currently is 52, is due to persistent testosterone replacement --> labs have been reviewed, ferritin 27, tibc 348, is consistent with blood donation --> would recommend to see brick kiln burner to adjust dose as needed of testosterone --> at this time continue to be off iron, does not need iron replacement --> recommend to continue to donate blood in [place] as needed to get ferritin <50 --> dw him extensively, he will do well with continued donations # Continuing and progressive abdominal pain of uncertain etiology, rule out a stricture or partial obstruction. --> imaging with Ct, bowel series --> per surg # Malfunctioning Jamison continent ileostomy with recurring, cramping and diarrhea output, refractory to medications. # History of colonic inertia and pelvic floor dysfunction. # STATUS POST MULTIPLE ABDOMINAL OPERATIONS: -->. Sigmoid colectomy 2009 without any clinical benefit. -->. Total abdominal colectomy with creation of a Jamison continent ileostomy January 29, 2013 (a postoperative pelvic abscess required CT-guided drainage). -->. Revision of Jamison continent ileostomy stoma in depth on May 07, 2013. # Dvt ppx scds Appreciate consultation and dw Rn Subjective Constitutional: Denies: no symptoms, chills, fever, malaise, weakness, other HEENT: Denies: no symptoms, eye pain, blurred vision, tearing, double vision, ear pain, ear discharge, nose pain, nose congestion, throat pain, throat swelling, mouth pain, mouth swelling, other Cardiovascular: Denies: no symptoms, chest pain, edema, irregular heart rate, lightheadedness, palpitations, syncope, other Gastrointestinal/Abdominal: Denies: no symptoms, abdomen distended, abdominal pain, black stools, tarry stools, blood in stool, constipated, diarrhea, difficulty swallowing, nausea, poor appetite, poor fluid intake, rectal bleeding, vomiting, other Genitourinary: Denies: no symptoms, burning, discharge, frequency, flank pain, hematuria, incontinence, pain, urgency, other Neurologic/Psychiatric: Denies: no symptoms, anxiety, depressed, emotional problems, headache, numbness, paresthesia, pre-existing deficit, seizure, tingling, tremors, weakness, other Endocrine: Denies: no symptoms, excessive sweating, flushing, intolerance to cold, intolerance to heat, increased hunger, increased thirst, increased urine, unexplained weight gain, unexplained weight loss, other Allergies: Coded Allergies: No Known Allergies (Unverified , 01/28/13) Subjective 05/01 meds reviewed, to have upper gi series and eval with gi Objective Objective Current Medications Medications (Trade) Dose Ordered Sig/Charissa Route PRN Reason Start Time Stop Time Status Last Admin Dose Admin Barium Sulfate (Readi-Cat 2) 450 ml NOW PRN ORAL Radiology Procedure 04/30/20 08:15 05/02/20 08:14 Dextrose/ Electrolytes 1,000 ml @ 100 mls/hr Q10H IV 04/28/20 18:00 05/28/20 17:59 04/30/20 13:15 Iohexol (OMNIPAQUE-300 100ml) 100 ml NOW PRN INJ Radiology Procedure 04/30/20 08:15 05/02/20 08:14 Lorazepam (Ativan) 1 mg QHS PRN ORAL INSOMNIA 04/28/20 21:45 05/05/20 21:44 04/30/20 21:36 Ondansetron HCl (Zofran) 4 mg Q4H PRN IVP Nausea & Vomiting 04/28/20 17:00 05/28/20 16:59 Last 24 Hour Vital Signs Date Time Temp Pulse Resp B/P (MAP) Pulse Ox O2 Delivery O2 Flow Rate FiO2 04/30/20 22:18 86 16 112/88 98 04/30/20 21:36 86 16 112/88 98 04/30/20 21:16 Room Air 04/30/20 20:00 96.8 86 16 112/88 (96) 98 04/30/20 16:00 97.5 92 18 126/77 (93) 98 04/30/20 12:00 97.7 81 18 122/87 (99) 99 04/30/20 09:00 Room Air 04/30/20 08:00 98.3 76 18 112/76 (88) 99 04/30/20 00:00 97.2 75 18 119/76 (90) 97 04/29/20 22:52 75 18 117/67 96 04/29/20 22:07 75 18 117/67 96 04/29/20 21:00 Room Air 04/29/20 20:00 97.6 75 18 117/67 (84) 96 04/29/20 16:00 97.8 88 18 123/75 (91) 95 04/29/20 12:00 98.2 74 18 108/72 (84) 96 Intake and Output 04/30/20 05/01/20 19:00 07:00 Intake Total 2220 ml Output Total 1770 ml 2735 ml Balance 450 ml -2735 ml Intake Oral 120 ml IV Total 2100 ml Output Urine Total 600 ml 200 ml Other 1170 ml 2535 ml Labs Test 04/28/20 14:54 04/28/20 22:20 04/29/20 06:40 04/30/20 09:30 White Blood Count 5.9 K/UL (4.8-10.8) 6.0 K/UL (4.8-10.8) Red Blood Count 5.84 M/UL (4.70-6.10) 5.95 M/UL (4.70-6.10) Hemoglobin 17.2 G/DL (14.2-18.0) 17.0 G/DL (14.2-18.0) Hematocrit 50.0 % (42.0-52.0) 50.8 % (42.0-52.0) Mean Corpuscular Volume 86 FL (80-99) 85 FL (80-99) Mean Corpuscular Hemoglobin 29.5 PG (27.0-31.0) 28.5 PG (27.0-31.0) Mean Corpuscular Hemoglobin Concent 34.4 G/DL (32.0-36.0) 33.4 G/DL (32.0-36.0) Red Cell Distribution Width 12.5 % (11.6-14.8) 11.4 % (11.6-14.8) Platelet Count 257 K/UL (150-450) 254 K/UL (150-450) Mean Platelet Volume 7.9 FL (6.5-10.1) 7.9 FL (6.5-10.1) Neutrophils (%) (Auto) 62.5 % (45.0-75.0) 69.3 % (45.0-75.0) Lymphocytes (%) (Auto) 26.4 % (20.0-45.0) 20.2 % (20.0-45.0) Monocytes (%) (Auto) 6.2 % (1.0-10.0) 6.4 % (1.0-10.0) Eosinophils (%) (Auto) 3.3 % (0.0-3.0) 2.8 % (0.0-3.0) Basophils (%) (Auto) 1.6 % (0.0-2.0) 1.2 % (0.0-2.0) Sodium Level 140 MMOL/L (136-145) 137 MMOL/L (136-145) Potassium Level 3.9 MMOL/L (3.5-5.1) 3.8 MMOL/L (3.5-5.1) Chloride Level 103 MMOL/L (98-107) 104 MMOL/L (98-107) Carbon Dioxide Level 27 MMOL/L (21-32) 27 MMOL/L (21-32) Anion Gap 10 mmol/L (5-15) 6 mmol/L (5-15) Blood Urea Nitrogen 8 mg/dL (7-18) 8 mg/dL (7-18) Creatinine 1.0 MG/DL (0.55-1.30) 1.0 MG/DL (0.55-1.30) Estimat Glomerular Filtration Rate > 60 mL/min (>60) > 60 mL/min (>60) Glucose Level 87 MG/DL (74-106) 89 MG/DL (74-106) Calcium Level 8.8 MG/DL (8.5-10.1) 8.3 MG/DL (8.5-10.1) Total Bilirubin 1.2 MG/DL (0.2-1.0) 1.2 MG/DL (0.2-1.0) Direct Bilirubin 0.2 MG/DL (0.0-0.3) 0.3 MG/DL (0.0-0.3) Aspartate Amino Transf (AST/SGOT) 20 U/L (15-37) 18 U/L (15-37) Alanine Aminotransferase (ALT/SGPT) 11 U/L (12-78) 19 U/L (12-78) Alkaline Phosphatase 70 U/L (46-116) 62 U/L (46-116) Total Protein 7.3 G/DL (6.4-8.2) 6.2 G/DL (6.4-8.2) Albumin 3.9 G/DL (3.4-5.0) 3.5 G/DL (3.4-5.0) Globulin 3.4 g/dL 2.7 g/dL Albumin/Globulin Ratio 1.1 (1.0-2.7) 1.3 (1.0-2.7) Lipase 143 U/L (73-393) Urine Color Yellow Urine Appearance Clear Urine pH 5 (4.5-8.0) Urine Specific [place] 1.020 (1.005-1.035) Urine Protein Negative (NEGATIVE) Urine Glucose (UA) Negative (NEGATIVE) Urine Ketones 1+ (NEGATIVE) Urine Blood Negative (NEGATIVE) Urine Nitrite Negative (NEGATIVE) Urine Bilirubin Negative (NEGATIVE) Urine Urobilinogen Normal MG/DL (0.0-1.0) Urine Leukocyte Esterase 1+ (NEGATIVE) Urine RBC 0-2 /HPF (0 - 0) Urine WBC 0-2 /HPF (0 - 0) Urine Squamous Epithelial Cells None /LPF (NONE/OCC) Urine Bacteria Few /HPF (NONE) Prothrombin Time 11.4 SEC (9.30-11.50) Prothromb Time International Ratio 1.0 (0.9-1.1) Activated Partial Thromboplast Time 29 SEC (23-33) Iron Level 275 ug/dL (50-175) 105 ug/dL (50-175) Total Iron Binding Capacity 348 ug/dL (250-450) Percent Iron Saturation 79 % (15-50) Unsaturated Iron Binding 73 ug/dL (112-346) Ferritin 27 NG/ML (8-388) 44 NG/ML (8-388) Vitamin B12 Level 400 PG/ML (193-986) Folate 9.3 NG/ML (8.6-58.9) Height (Feet): 5 Height (Inches): 5.00 Weight (Pounds): 150 Objective PHYSICAL EXAMINATION: GENERAL: The patient is 5 feet 9 inches, vitals stable HEENT: Within normal limits. LUNGS: Clear. HEART: Regular rhythm. BREASTS: Without masses. ABDOMEN: Soft and flat. There is a long midline scar. There is a small stoma low in the right lower quadrant of the Jamison pouch++++ GENITALIA: Within normal limits. RECTAL: There is a small rectal pouch. EXTREMITIES: Without edema. NEUROLOGIC: Physiologic. Selwyn Encarnacion MD May 01, 2020 09:05
[2020-05-01 09:43] LABS: BASOPHILS % (AUTO) 1.6 % (0.0-2.0); EOSINOPHILS % (AUTO) 2.7 % (0.0-3.0); HEMATOCRIT 48.9 % (42.0-52.0); HEMOGLOBIN 16.6 G/DL (14.2-18.0); LYMPHOCYTES % (AUTO) 26.8 % (20.0-45.0); MEAN CORPUSCULAR VOLUME 85 FL (80-99); MONOCYTES % (AUTO) 7.4 % (1.0-10.0); NEUTROPHILS % (AUTO) 61.5 % (45.0-75.0); PLATELET COUNT 238 K/UL (150-450); RED BLOOD COUNT 5.76 M/UL (4.70-6.10); RED CELL DISTRIBUTION WIDTH 11.5 % (11.6-14.8); WHITE BLOOD COUNT 4.7 K/UL (4.8-10.8)
[2020-05-01] MEDS: D5 1/2NS w/KCl 20mEq 1,000 ML IV SCH (09:49)
[2020-05-01 10:00] VITALS: BP 123/81
--- NOTE | 2020-05-01 10:53 | NUR ---
NURSE NOTES: Received call from Radiology needing clarification on contrast to be given for upper gi. Called Dr. Wood, order received for Upper GI to be done with Barium NOT GASTROGRAFIN, RN called radiology [id number], updated with above order.
[2020-05-01 12:00] VITALS: BP 109/71
--- NOTE | 2020-05-01 13:07 | General Progress Note ---
Subjective ROS Limited/Unobtainable: Yes Allergies: Coded Allergies: No Known Allergies (Unverified , 01/28/13) Objective Last 24 Hour Vital Signs Date Time Temp Pulse Resp B/P (MAP) Pulse Ox O2 Delivery O2 Flow Rate FiO2 05/01/20 12:00 97.2 74 16 109/71 (84) 99 05/01/20 10:00 98.3 71 16 123/81 (95) 97 04/30/20 22:18 86 16 112/88 98 04/30/20 21:36 86 16 112/88 98 04/30/20 21:16 Room Air 04/30/20 20:00 96.8 86 16 112/88 (96) 98 04/30/20 16:00 97.5 92 18 126/77 (93) 98 Intake and Output 04/30/20 05/01/20 19:00 07:00 Intake Total 2220 ml Output Total 1770 ml 2735 ml Balance 450 ml -2735 ml Intake Oral 120 ml IV Total 2100 ml Output Urine Total 600 ml 200 ml Other 1170 ml 2535 ml Laboratory Tests 05/01/20 09:25: White Blood Count 4.7L, Red Blood Count 5.76, Hemoglobin 16.6, Hematocrit 48.9, Mean Corpuscular Volume 85, Mean Corpuscular Hemoglobin 28.8, Mean Corpuscular Hemoglobin Concent 33.9, Red Cell Distribution Width 11.5L, Platelet Count 238, Mean Platelet Volume 7.9, Neutrophils (%) (Auto) 61.5, Lymphocytes (%) (Auto) 26.8, Monocytes (%) (Auto) 7.4, Eosinophils (%) (Auto) 2.7, Basophils (%) (Auto) 1.6 Height (Feet): 5 Height (Inches): 5.00 Weight (Pounds): 150 General Appearance: no apparent distress EENT: normal ENT inspection Neck: supple Cardiovascular: normal rate Respiratory/Chest: decreased breath sounds Abdomen: soft, hypoactive bowel sounds, distended Extremities: non-tender Assessment/Plan Assessment/Plan: post BCRI few years ago abd distention ? due top severe SIBO trial of Xifaxan simethicone will fu Darío Vila MD May 01, 2020 13:07
--- NOTE | 2020-05-01 13:53 | NUR ---
INSURANCE CLINICALS FAXED TO [facility] FX [phone]
--- NOTE | 2020-05-01 15:39 | General Progress Note ---
Progress Note Progress Note UGI with SBS is normal Appreciate Dr. Vila consultation - possible Smalll Intestinal Bacterial Overgrowth Syndrome (SIBO) - to try Xifaxan + simethicone Anticipate discharge in AM if labs all stable Pedro Wood MD May 01, 2020 15:39
--- NOTE | 2020-05-01 15:47 | Diagnostic Imaging Report ---
Indication: Abdominal pain. History of total colectomy and creation of continent ostomy. Technique: Upper GI w Small Bowel. Fluoroscopic and radiographic examination performed. Test Kitchen Home Economist radiograph obtained. Subsequently water-soluble contrast was instilled via the continent ostomy catheter. Radiographic and fluoroscopic images were obtained. Total fluoroscopy time 68.7 seconds. Total fluoroscopy dose 9.3 mGy. Total number of radiographic images/fluoroscopic runs obtained: 16. Comparison: Correlation made to concurrent CT of the abdomen and pelvis Findings: Patient self administered contrast. Swallowing is normal. There is no impediment to flow of contrast in the esophagus. No evidence of intrinsic compression or intraluminal filling defect in the esophagus. Stomach is unremarkable in appearance. The ligament of Treitz is located in its normal position to the left of midline. There is no evidence of small bowel obstruction. Contrast transits through the small bowel and is noted within the pouch on the completion images. No discrete mucosal lesions are appreciated however sensitivity in evaluation for such is limited on this single contrast exam. Consider more sensitive evaluation with endoscopy. IMPRESSION: Postsurgical changes related to continent ostomy. No abnormal swallowing or abnormal esophageal peristalsis. No esophageal stricture or filling defect. No evidence of small bowel obstruction. No appreciable small bowel stricturing.
[2020-05-01 16:00] VITALS: BP 123/85
--- NOTE | 2020-05-01 16:00 | NUR ---
NURSE NOTES: Patient sent down for upper GI via petar on RA, in stable condition at 1430, returned at 1600, seen by Dr. Wood, regular diet ordered.
[2020-05-01] MEDS: Simethicone 80mg tab ORAL SCH ×2 (17:06→21:35)
--- NOTE | 2020-05-01 18:00 | NUR ---
NURSE NOTES: Attempted to irrigate ileostomy at 1500 and 1800 with additional NS, post upper GI/barium, however patient states " I already did it" reports he flushed with 30 ml x2 and does not need anymore.
--- NOTE | 2020-05-01 19:30 | NUR ---
NURSE HAND-OFF: Important Events on Shift:Upper GI done, started on Xifaxan PO, patient removed ileostomy catheter at 1900 (to self intubate), no IV access Patient Status: stable Diet: regular Pending Orders: Labs AM Pending Results/Labs:CMP MG PHOS 05/02 Pending MD notification: none Latest Vital Signs: Temperature 97.5 , Pulse 89 , B/P 123 /85 , Respiratory Rate 18 , O2 SAT 97 , Room Air, O2 Flow Rate . Vital Sign Comment: none Latest Martins Fall Score: 20 Fall Risk: Low Risk Safety Measures: Call light Within Reach, Bed Alarm Zone 2, Side Rails Side Rails x2, Bed position Low and Locked. Fall Precautions: Patient Fall Education Report given to Chirag BROCK.
--- NOTE | 2020-05-01 19:45 | NUR ---
NURSE NOTES: Received report from Megha BROCK. Patient is awake, alert and oriented x4. On room air, breathing is even and unlabored. No complains of pain or distress noted. No IV access and MD aware. Patient took out ileo catheter and started self intubating. Will record I&O. Bed low and locked. Call light within reach.
[2020-05-01 20:00] VITALS: BP 113/74
--- NOTE | 2020-05-01 22:15 | NUR ---
NURSE NOTES: Called to inform that patient started self intubating and also that he refused morning labs. Waiting for return call.
--- NOTE | 2020-05-02 06:37 | NUR ---
NURSE NOTES: Ileo output - 275ml UO- 225ml
--- NOTE | 2020-05-02 07:23 | NUR ---
NURSE NOTES: Report received from Chirag RN, rounds made. Patient AOx4, calm, resting in semi-fowlers position in bed. Respirations even/unlabored on RA. Ambulates frequently in halls. On regular diet. No IV access. Self intubating. Possible discharge home today. Denies pain, SOB, NV. Call light in reach, bed in lowest position, will continue to monitor.
--- NOTE | 2020-05-02 07:25 | NUR ---
NURSE HAND-OFF: Important Events on Shift: Self intubating, D/C planning Patient Status: Stable Diet: Regular Pending Orders: [] Pending Results/Labs:[] Pending MD notification:[] Latest Vital Signs: Temperature 97.2 , Pulse 83 , B/P 113 /74 , Respiratory Rate 16 , O2 SAT 98 , Room Air, O2 Flow Rate . Vital Sign Comment: VS stable Latest Martins Fall Score: 20 Fall Risk: Low Risk Safety Measures: Call light Within Reach, Bed Alarm Zone 2, Side Rails Side Rails x2, Bed position Low and Locked. Fall Precautions: Patient Fall Education Report given to Megha BROCK.
[2020-05-02 08:00] VITALS: BP 134/87
[2020-05-02] MEDS: Simethicone 80mg tab ORAL SCH (08:45)
--- NOTE | 2020-05-02 08:47 | General Progress Note ---
Progress Note Progress Note Had increased abdominal pain with Rifaximin so reluctant to take it Abdomen soft. He is self-intubating his Jamison pouch again. Imp: Chronic recurring abdominal pain of unknown etiology Complete work-up has excluded any surgically correctable issues that would account for his symptoms History of colonic inertia, so he may have small bowel dysmotility or SIBO potentially Plan; Discharge with reports of endoscopy and CT, pouchogram and UGI with [facility] XRay reports and labs To follow up with local [facility] re treatment options Supplies provided (stents, catheters, irrigation tray) Pedro Wood MD May 02, 2020 08:47
--- NOTE | 2020-05-02 10:00 | NUR ---
NURSE NOTES: Patient did not self intubate this AM for my shift, so far.
--- NOTE | 2020-05-02 10:55 | NUR ---
NURSE NOTES: Discharge instructions reviewed with patient, verbalized understanding. All belongings, discharge papers, supplies given to patient. ID bracelet removed. No IV access since yesterday. Ambulated down to lobby with RN, in stable condition. Plans to take taxi to airport. Discharged at 1055.
--- NOTE | 2020-05-04 11:06 | Discharge Summary ---
Discharge Summary Discharge Summary _ Date of admission: 04/28/2020 Date of discharge: 05/02/[address] Wood History of Present Illness and Brief Hospital Course Mr. Herrera is a 39-year-old male with past medical history of colonic inertia and pelvic floor dysfunction, who presented to the ER for evaluation of abdominal pain and bloating. Patient had a Kyler pouch placed by Dr. Wood in the past. The initial laboratory studies demonstrated no significant acute abnormalities. Patient was given Mylanta and Pepcid for abdominal discomfort. Patient was admitted to the hospital for further treatment and evaluation. Of note, patient had multiple abdominal operations; sigmoid colectomy 2009 w ithout any clinical benefit, total abdominal colectomy with creation of a Jamison continent ileostomy (01/29/2013), and revision of Jamison continent ileostomy stoma (05/07/2013). Pouchogram with retrograde small bowel series was negative except for small capacity Jamison continent ileostomy pouch. Patient's presentation was consistent with possible small intestinal bacterial overgrowth syndrome. Patient was started on Xifaxan and simethicone. However, patient had increased abdominal pain with rifaximin. Complete work-up had excluded any surgically correctable issues that would account for his symptoms. Patient was self intubating his Jamison pouch again at this point. Patient also complained of recurring abdominal cramping and diarrhea. Patient tested negative for C. difficile. It deemed best for the patient to be discharged with reports of endoscopy, CT, pouchogram and UGI with [facility] x-ray reports and labs and follow-up with local [facility] regarding treatment options. Patient was provided with supplies such as stents, catheters, and irrigation trace. Patient was medically stable for discharge and was discharged home on 05/02/2020 Of note, Patient was found to have erythrocytosis with hematocrits that were consistently above 50. This was likely due to persistent testosterone replacement. Patient was recommended to see an bottom sander to adjust dose as needed of testosterone. Patient was recommended to continue to donate blood as needed to get ferritin level below 50. Consultants: Hematology oncology Dr. Encarnacion Discharge Condition Improved and stable Final diagnoses Erythrocytosis Abdominal pain of uncertain etiology Malfunctioning Jamison continent ileostomy History of colonic inertia and pelvic floor dysfunction I have been assigned to dictate discharge summary for this account. I was not involved in the patient's management Hakan Garcia May 04, 2020 11:06
== END 2020-05-02 10:55 | disposition home or self-care (01) | DRG 395 ==
LOC: EMR 14:24 → 4E 15:18 → EDBEDREQSVC 16:16 → EDBEDREQ 16:16
PROC: 0DJD8ZZ Inspection of Lower Intestinal Tract, Via Natural or Artificial Opening Endoscopic (ICD-10-PCS; principal; 2020-04-29 08:09)
DX: K94.13 Enterostomy malfunction (principal); Y83.3 Surgical operation with formation of external stoma as the cause of abnormal reaction of the patient, or of later complication, without mention of misadventure at the time of the procedure; Z90.49 Acquired absence of other specified parts of digestive tract; R10.9 Unspecified abdominal pain; D75.1 Secondary polycythemia; Z79.890 Hormone replacement therapy
CPT/HCPCS: 36415; 74177; 74270; 80053; 81001; 82248; 82607; 82728; 82746; 83540; 83550; 83690; 85025; 85610; 85730; 87045; 87324; 96361; 96374; 99285; J7030